=== PATIENT | female | born 1970 | race Caucasian/White ===

== ENCOUNTER 2017-02-26 09:35 | Day surgery (SDC) | payer OTHER ==
[2017-02-12 13:51] VITALS: BMI 21.9
--- NOTE | 2017-02-26 11:55 | CP.SDSHP ---
Same Day Surgery H & P - History Proposed Procedure: US guided FNA of left thyroid nodule Pre-Op Diagnosis: Thyroid nodule - Allergies Allergies: Allergies No Known Allergies Allergy (Verified 02/12/17 13:50) - Impression Impression: Pt with a complex 2.7 cm mixed solid and cystic left thyroid nodule. Plan US guided FNA. Pt. Evaluated Today:Candidate for Anesthesia & Procedure: No Short Stay Discharge - Short Stay Discharge Admitting Diagnosis/Reason for Visit: THYROID CYST
--- NOTE | 2017-02-26 11:57 | PCM.SURG1 ---
Surgeon's Initial Post Op Note - Surgeon's Notes Surgeon: Patrice Cha MD Field Tech: NONE Type of Anesthesia: Local Pre-Operative Diagnosis: Thyroid nodule Operative Findings: US showed a complex mixed solid and cystic left thyroid nodule Post-Operative Diagnosis: Thyroid nodule Operation Performed: US guided FNA Specimen/Specimens Removed: 25 g FNA x 2 passes. 2 ml of brownish fluid aspirated. Estimated Blood Loss: EBL {In ML}: 0 Blood Products Given: N/A Drains Used: No Drains Post-Op Condition: Good Date of Surgery/Procedure: 02/26/17 Time of Surgery/Procedure: 11:50
--- NOTE | 2017-02-27 13:49 | US ---
PROCEDURE: Date of Procedure: 02/26/2017 PROCEDURE: 1. Ultrasound guided FNA of left thyroid nodule, CPT 68387 2. Ultrasound guidance for FNA, [id number] Medications: 3cc 1% Lidocaine HISTORY: Enlarged left thyroid nodule. TECHNIQUE: Following informed consent and procedure time-out, a limited ultrasound patient's neck confirmed the presence of a 1.9 cm complex left thyroid nodule which is mixed solid and cystic. After the patient's neck was prepped and draped in the usual sterile fashion, the skin was anesthetized with 1% lidocaine. Ultrasound-guided fine needle aspiration was then performed of the dominant left thyroid nodule. A total of 4 passes were made into the nodule with 25 gauge needle under ultrasound guidance. The FNA specimen was sent for routine pathology. Post biopsy ultrasound showed no hematoma. IMPRESSION: Ultrasound-guided FNA of the dominant left thyroid nodule.
== END 2017-02-26 12:45 | disposition home or self-care (01) ==
LOC: C.SPRAD 09:35
PROVIDERS: ATTEND Radiology Vascular & Interventional Radiology
DX: E04.1 Nontoxic single thyroid nodule (principal)

== ENCOUNTER 2018-02-05 08:59 | Emergency (ER) | payer OTHER ==
[2018-02-05] MEDS ORDERED: Tdap Vaccine 0.5 ml Vial (10-64 yrs) IM ONE (09:22)
--- NOTE | 2018-02-05 09:23 | C.PDOC ---
History Of Present Illness 47 y/o female with no significant PMH presents to the ED c/o a laceration that occurred this AM. Pt was using a kitchen knife when it slipped and punctured her left palm below the third digit and exited on the opposite side medial to the third digit. Stopped bleeding in approx. 5 minutes when pressure was applied. Pt is able to make a full fist without difficulty. She has not taken anything for pain. Pt is not on blood thinners. Denies hand weakness, numbness, paresthesias, lacerations elsewhere. Chief Complaint (Nursing): Abnormal Skin Integrity History Per: Patient History/Exam Limitations: no limitations Onset/Duration Of Symptoms: Hrs Current Symptoms Are (Timing): Still Present Location Of Injury: Left: Hand Quality Of Symptoms: Painful Severity: Mild Past Medical History Reviewed: Historical Data, Nursing Documentation, Vital Signs Vital Signs: Last Vital Signs Temp 98.7 F 02/05/18 09:08 Pulse 55 L 02/05/18 09:08 Resp 17 02/05/18 09:08 BP 124/74 02/05/18 09:08 Pulse Ox 100 02/05/18 09:08 - Medical History PMH: Gastritis Denies: Chronic Kidney Disease Surgical History: Endoscopy Family History: States: No Known Family Hx - Social History Hx Alcohol Use: No Hx Substance Use: No - Immunization History Hx Tetanus Toxoid Vaccination: No Hx Influenza Vaccination: No Hx Pneumococcal Vaccination: No Review Of Systems Except As Marked, All Systems Reviewed And Found Negative. Constitutional: Negative for: Fever, Chills Eyes: Negative for: Vision Change Cardiovascular: Negative for: Chest Pain, Palpitations Respiratory: Negative for: Cough, Shortness of Breath Gastrointestinal: Negative for: Nausea, Vomiting, Abdominal Pain Musculoskeletal: Negative for: Neck Pain, Back Pain Skin: Positive for: Lesions (laceration left palm). Negative for: Rash Neurological: Negative for: Weakness, Numbness, Headache, Dizziness Physical Exam - Physical Exam Appears: Well, Non-toxic, No Acute Distress Skin: Normal Color, Warm, Dry, Other (1cm horizontal, linear laceration under 3rd digit on left palm. No debris or FB, no tendon involvement. Small exit wound on dorsal side of hand ) Head: Atraumatic, Normacephalic Eye(s): bilateral: Normal Inspection, PERRL, EOMI Oral Mucosa: Moist Neck: Normal, Normal ROM Chest: Symmetrical, No Deformity, No Tenderness Cardiovascular: Rhythm Regular Respiratory: Normal Breath Sounds Gastrointestinal/Abdominal: No Tenderness Back: Normal Inspection Extremity: Normal ROM, Capillary Refill (<2 sec), No Deformity, No Swelling Extremity: Left: Painful To Bear Weight, Right: Atraumatic (Left hand with laceration as noted in skin exam.), Normal Color And Temperature (Left hand with laceration as noted in skin exam.), Bilateral: Normal ROM Pulses: Left Radial: Normal, Right Radial: Normal Neurological/Psych: Oriented x3, Normal Speech, Normal Cognition, Normal Cranial Nerves, Normal Motor (full strength in all fingers and both hands bilaterally), Normal Sensation Gait: Steady ED Course And Treatment O2 Sat by Pulse Oximetry: 100 Procedure: Wound Repair - Time Performed Time Performed: 09:30 - Time Out Time Out: Side verified, Site verified, Patient ID confirmed, Sterile procedures obs. - Procedure Procedure: Wound Repair: Sutures - Consent Obtained Consent obtained: Verbal - Performed by Performed by: Mid-level Provider - Indications Indication(s):: Laceration - Location Location:: Left, Hand Shape:: Linear Dimensions Length cm: 1 Dimensions width cm: .25 Depth:: Epidermis - Anesthetic Technique Anesthetic Technique: Local Local/Regional Anesthetic:: Lidocaine 1% - Debris Debris:: None - Irrigated Irrigated with ml of normal saline: 20 - Complexity Complexity:: Simple (one layer) - Wound repair method Sutures:: # (1), Size (5-0), Type (Prolene), Technique (Simple Interrupted) - Complications Complications: None - Patient tolerated procedure Patient Tolerated Procedure:: Well Medical Decision Making Medical Decision Making: Initial Plan: --Tylenol for pain --Tdap --Left hand xray, r/o FB or fracture --Wound repair Left hand Xray FINDINGS: BONES: Normal. No fracture. JOINTS: Minimal arthrosis SOFT TISSUES: Normal. OTHER FINDINGS: None. IMPRESSION: No fracture cortical interruption or gross radiopaque foreign body appreciated. Impression: Laceration without FB, fracture or tendon involvement Plan: --return in 7 days for suture removal --wound care --ibuprofen/tylenol for pain --followup with primary within 2 days --return for worsening symptoms or signs of infection Disposition Discussed With : Vivek Duarte Comment: Recommended closure of puncture wound with 1 suture in middle of laceration to approximate edges. No antibiotics indicated. - Disposition Referrals: Marlon Mcmullen MD [Staff Provider] - Disposition: HOME/ ROUTINE Disposition Time: 09:46 Condition: IMPROVED Additional Instructions: RETURN IN 7 DAYS FOR SUTURE REMOVAL Keep wound clean, dry, and covered Do not soak the wound Take tylenol as needed for pain, every 4 hours Followup with primary within 2 days Followup with hand doctor if persistent pain or weakness Return to ED for signs of wound infection including fever, chills, wound redness, tenderness, drainage, or swelling Forms: [facility] ([place]), Work Excuse - Clinical Impression Clinical Impression: Puncture wound
[2018-02-05 09:30] VITALS: BP 124/74; PULSE 55; RESP 17; TEMP 98.7; O2SAT 100; BMI 22.0
[2018-02-05] MEDS ORDERED: Lidocaine 1% Inj (20ml) INFIL ONE (09:47)
[2018-02-05] MEDS ORDERED: Lidocaine Hydrochloride 5 ML INJ ONE (09:50)
--- NOTE | 2018-02-05 09:51 | RAD ---
PROCEDURE: Left Hand Radiographs. HISTORY: puncture wound r/o FB, fracture COMPARISON: None. FINDINGS: BONES: Normal. No fracture. JOINTS: Minimal arthrosis SOFT TISSUES: Normal. OTHER FINDINGS: None. IMPRESSION: No fracture cortical interruption or gross radiopaque foreign body appreciated.
[2018-02-05] MEDS ORDERED: Bacitracin 500 Units/gm Oint Foilpak UD ONE (10:46)
[2018-02-05] MEDS ORDERED: Bacitracin 500 Units/gm Oint Foilpak UD TOP ONE (10:48)
== END 2018-02-05 10:49 | disposition home or self-care (01) ==
LOC: C.ER 08:59
DX: S61.432A Puncture wound without foreign body of left hand, initial encounter (principal); W26.0XXA Contact with knife, initial encounter; Y92.9 Unspecified place or not applicable; Z23 Encounter for immunization

== ENCOUNTER 2018-02-11 10:56 | Emergency (ER) | payer OTHER ==
[2018-02-11 10:56] VITALS: BMI 21.9
--- NOTE | 2018-02-11 11:34 | C.PDOC ---
History Of Present Illness 47yo female, seen in this ER on 02/05 for a laceration on her left hand, comes today for suture removal. Patient denies any new injuries; she also denies any swelling, discharge or redness to her suture site. No other complaints. Time Seen by Provider: 02/11/18 11:25 Chief Complaint (Nursing): Suture/Staple Removal History Per: Patient History/Exam Limitations: no limitations Onset/Duration Of Symptoms: Days Ago Current Symptoms Are (Timing): Better Location Of Injury: Left: Hand Quality Of Symptoms: denies: Painful, Itching, Swollen, Draining Additional History Per: Patient Past Medical History Reviewed: Historical Data, Nursing Documentation, Vital Signs Vital Signs: Last Vital Signs Temp 98.6 F 02/11/18 10:58 Pulse 54 L 02/11/18 10:58 Resp 16 02/11/18 10:58 BP 122/73 02/11/18 10:58 Pulse Ox 100 02/11/18 10:58 - Medical History PMH: No Chronic Diseases, Gastritis Denies: Chronic Kidney Disease Surgical History: Endoscopy Family History: States: No Known Family Hx - Social History Hx Tobacco Use: No Hx Alcohol Use: No Hx Substance Use: No - Immunization History Hx Tetanus Toxoid Vaccination: No Hx Influenza Vaccination: No Hx Pneumococcal Vaccination: No Review Of Systems Musculoskeletal: Negative for: Hand Pain Skin: Positive for: Other (suture to left hand) Physical Exam - Physical Exam Appears: Non-toxic, No Acute Distress Skin: Normal Color Extremity: Normal ROM, No Deformity, No Swelling, Other (healing laceration to left hand with [address]) ED Course And Treatment O2 Sat by Pulse Oximetry: 100 (RA) Pulse Ox Interpretation: Normal Medical Decision Making Medical Decision Making: Impression: 47yo female, presents for suture removal Plan: -- Suture removed with suture removal kit -- Patient tolerated procedure well Stable for discharge home. Disposition Counseled Patient/Family Regarding: Diagnosis, Need For Followup - Disposition Disposition: HOME/ ROUTINE Disposition Time: 11:34 Condition: GOOD Instructions: Stitches Removal Forms: [facility] (Portuguese) - POA Present On Arrival: None - Clinical Impression Clinical Impression: Removal of suture - PA / [employer] / Resident Statement MD/DO has reviewed & agrees with the documentation as recorded. - Scribe Statement The provider has reviewed the documentation as recorded by the Madalyn Busch Provider Attestation: All medical record entries made by the Madalyn were at my direction and personally dictated by me. I have reviewed the chart and agree that the record accurately reflects my personal performance of the history, physical exam, medical decision making, and the department course for this patient. I have also personally directed, reviewed, and agree with the discharge instructions and disposition.
[2018-02-11 11:41] VITALS: BP 122/73; PULSE 54; TEMP 98.6; O2SAT 100
[2018-02-11 11:48] VITALS: RESP 18
== END 2018-02-11 11:45 | disposition home or self-care (01) ==
LOC: C.ER 10:56
DX: Z48.02 Encounter for removal of sutures (principal)